=== PATIENT | male | born 1980 | race American Indian/Alaskan Native ===

== ENCOUNTER 2017-07-15 00:22 | Emergency (ER) | payer SELFPAY ==
[2017-07-15 00:38] VITALS: BP 164/79; PULSE 89; RESP 18; TEMP 98.2; O2SAT 100
--- NOTE | 2017-07-15 00:50 | C.PDOC ---
History Of Present Illness 37 year old male presents to the ER with a complaint of a right groin hernia for the past few months. Denies other complaints. Chief Complaint (Nursing): Groin Pain History Per: Patient History/Exam Limitations: no limitations Onset/Duration Of Symptoms: Days Current Symptoms Are (Timing): Still Present Quality Of Discomfort: Unable To Describe Alleviating Factors: None Recent travel outside of the [place]: No Past Medical History Reviewed: Historical Data, Nursing Documentation, Vital Signs Vital Signs: Last Vital Signs Temp 98.2 F 07/15/17 00:34 Pulse 89 07/15/17 00:34 Resp 18 07/15/17 00:34 BP 164/79 H 07/15/17 00:34 Pulse Ox 100 07/15/17 00:50 Family History: States: Unknown Family Hx - Social History Hx Alcohol Use: Yes Hx Substance Use: Yes (MARIJUANA SOMETIMES) - Immunization History Hx Tetanus Toxoid Vaccination: No Hx Influenza Vaccination: No Hx Pneumococcal Vaccination: No Review Of Systems Constitutional: Negative for: Fever, Chills Cardiovascular: Negative for: Chest Pain, Palpitations Respiratory: Negative for: Cough, Shortness of Breath Gastrointestinal: Positive for: Other (Hernia). Negative for: Nausea, Vomiting Physical Exam - Physical Exam Appears: Non-toxic Skin: Normal Color, Warm, Dry Head: Atraumatic, Normacephalic Eye(s): bilateral: Normal Inspection Oral Mucosa: Moist Chest: Symmetrical, No Tenderness Cardiovascular: Rhythm Regular Respiratory: Normal Breath Sounds, No Rales, No Rhonchi, No Wheezing Gastrointestinal/Abdominal: Soft, No Tenderness Male Genital: Other (Right reducible inguinal hernia) Neurological/Psych: Oriented x3, Normal Speech ED Course And Treatment O2 Sat by Pulse Oximetry: 100 (Room air) Pulse Ox Interpretation: Normal Disposition Counseled Patient/Family Regarding: Diagnosis - Disposition Referrals: [facility] [Outside] Disposition: HOME/ ROUTINE Disposition Time: 00:49 Condition: STABLE Instructions: Groin Hernia (DC) Forms: [facility] (Estonian) - POA Present On Arrival: None - Clinical Impression Clinical Impression: Reducible right inguinal hernia - Scribe Statement The provider has reviewed the documentation as recorded by the Scribe Stanislav Singh All medical record entries made by the Scribe were at my direction and personally dictated by me. I have reviewed the chart and agree that the record accurately reflects my personal performance of the history, physical exam, medical decision making, and the department course for this patient. I have also personally directed, reviewed, and agree with the discharge instructions and disposition.
== END 2017-07-15 01:04 | disposition home or self-care (01) ==
LOC: C.ER 00:22
DX: K40.90 Unilateral inguinal hernia, without obstruction or gangrene, not specified as recurrent (principal)

== ENCOUNTER 2017-12-15 14:14 | Inpatient (IN) | payer OTHER ==
--- NOTE | 2017-12-15 15:05 | C.PDOC ---
History Of Present Illness 37 year old male presents to the ED for evaluation of right groin pain for 2 months. Patient reports prior visit to the ED where he was treated and diagnosed with a hernia, and advised to follow up with the doctor. Patient has not f ollowed up with the doctor concerning his hernia. Denies fever, chills, nausea, vomiting, and any other associated symptoms. Time Seen by Provider: 12/15/17 14:21 Chief Complaint (Nursing): Groin Pain History Per: Patient History/Exam Limitations: no limitations Onset/Duration Of Symptoms: Days Current Symptoms Are (Timing): Still Present Past Medical History Reviewed: Historical Data, Nursing Documentation, Vital Signs Vital Signs: Last Vital Signs Temp 98.5 F 12/15/17 14:18 Pulse 105 H 12/15/17 14:18 Resp 17 12/15/17 14:18 BP 148/82 12/15/17 14:18 Pulse Ox 97 12/15/17 14:18 - Medical History PMH: Denies: Chronic Kidney Disease Family History: States: Unknown Family Hx - Social History Hx Alcohol Use: Yes Hx Substance Use: Yes - Immunization History Hx Tetanus Toxoid Vaccination: No Hx Influenza Vaccination: No Hx Pneumococcal Vaccination: No Review Of Systems Except As Marked, All Systems Reviewed And Found Negative. Constitutional: Negative for: Fever, Chills Gastrointestinal: Negative for: Nausea, Vomiting Genitourinary: Positive for: Other (right-sided groin pain. ) Physical Exam - Physical Exam Appears: Well, Non-toxic, No Acute Distress Skin: Normal Color, Warm, Dry Head: Atraumatic, Normacephalic Eye(s): bilateral: Normal Inspection Oral Mucosa: Moist Neck: Normal ROM, Supple Cardiovascular: Rhythm Regular, No Murmur Respiratory: Normal Breath Sounds, No Rales, No Rhonchi, No Wheezing Gastrointestinal/Abdominal: Soft, Tenderness (tenderness and swelling to the right groin area.) Male Genital: Testicular Tenderness (right.), Testicular Swelling (right.) Neurological/Psych: Oriented x3, Normal Speech ED Course And Treatment - Laboratory Results Result Diagrams: 12/15/17 15:40 Lab Interpretation: Normal O2 Sat by Pulse Oximetry: 97 (RA) Pulse Ox Interpretation: Normal Progress Note: Case discussed and patient evaluated by advanced manufacturing vice president who agrees to admit to Dr Rodriguez for hernia repair Reassessment Condition: Unchanged - Physician Consult Information Physician Contacted: Michael Rodriguez Outcome Of Conversation: admit Medical Decision Making Medical Decision Making: Plan: -Blood sent. Urinalysis 3:16pm: Spoke with the advanced manufacturing vice president who will see patient at bedside. Disposition Discussed With : Michael Rodriguez Doctor Will See Patient In The: Hospital - Disposition Disposition: HOSPITALIZED Disposition Time: 16:00 Condition: STABLE - POA Present On Arrival: None - Clinical Impression Clinical Impression: Incarcerated inguinal hernia - PA / STITCH BURNISHER / Resident Statement MD/DO has reviewed & agrees with the documentation as recorded. - Scribe Statement The provider has reviewed the documentation as recorded by the Scribe (Betty Figueroa) All medical record entries made by the Scribe were at my direction and personally dictated by me. I have reviewed the chart and agree that the record accurately reflects my personal performance of the history, physical exam, medical decision making, and the department course for this patient. I have also personally directed, reviewed, and agree with the discharge instructions and disposition. Decision To Admit - Pt Status Changed To: Hospital Disposition Of: Inpatient - Admit Certification Admit to Inpatient:: After my assessment, the patient will require hospitalization for at least two midnights. This is because of the severity of symptoms shown, intensity of services needed, and/or the medical risk in this patient being treated as an outpatient. - InPatient: Physician Admission Certification: I certify that this patient requires 2 or more midnights of care for the following reason:: Inguinal Hernia - . Bed Request Type: Regular Admitting Physician: Michael Rodriguez Patient Diagnosis: Incarcerated inguinal hernia
[2017-12-15 15:48] LABS: BASO % 0.9 % (0.0-2.0); EOS # 0.1 K/uL (0.0-0.7); EOS % 2.9 % (0.0-4.0); HEMOGLOBIN 15.7 g/dL (12.0-18.0); LYMPH # 1.3 K/uL (1.0-4.3); MEAN CELL VOLUME 89.2 fL (80.0-94.0); MEAN CORPUSCULAR HEMOGLOBIN 30.1 pg (27.0-31.0); MEAN CORPUSCULAR HGB CONC 33.7 g/dL (33.0-37.0); MEAN PLATELET VOLUME 9.5 fL (7.2-11.7); MONO # 0.4 K/uL (0.0-0.8); MONO % 9.2 % (0.0-10.0); NEUT # 2.9 K/uL (1.8-7.0); RBC 5.22 Mil/uL (4.40-5.90); RED CELL DISTRIBUTION WIDTH 13.6 % (11.5-14.5); WHITE BLOOD COUNT 4.9 K/uL (4.8-10.8)
--- NOTE | 2017-12-15 15:53 | CP.PCM.HP ---
History of Present Illness - History of Present Illness History of Present Illness: General Surgery H&P Physician: Dr. Rodriguez HPI: 37 year old male with no PMHx presents to the ED with right inguinal pain. Patient has previously been seen in the EDx2 for right inguinal hernia that required a physician to reduce. Patient was previously taught how to reduce his inguinal hernia. Patient presented today due to right inguinal pain and unable to reduce his inguinal hernia. Inguinal hernia is noted to be larger than pre viously stated. Patient states that he continues to have bowel movements. Patient denies nausea, vomiting, chest pain, or shortness of breath. PMHx: Denies PSH: Denies Allergies: Denies Social Hx: Patient denies tobacco use. Patient admits to smoking marijuana occasionally. Present on Admission - Present on Admission Any Indicators Present on Admission: No History of DVT/PE: No History of Uncontrolled Diabetes: No Review of Systems - Review of Systems All systems: reviewed and no additional remarkable complaints except (as per HPI) Past Patient History - Infectious Disease Hx of Infectious Diseases: None - Past Social History Smoking Status: HOOKAH - CARDIAC Hx Cardiac Disorders: No - PULMONARY Hx Respiratory Disorders: No - NEUROLOGICAL Hx Neurological Disorder: No - HEENT Hx HEENT Problems: No - RENAL Hx Chronic Kidney Disease: No - ENDOCRINE/METABOLIC Hx Endocrine Disorders: No - HEMATOLOGICAL/ONCOLOGICAL Hx Blood Disorders: No - INTEGUMENTARY Hx Dermatological Problems: No - MUSCULOSKELETAL/RHEUMATOLOGICAL Hx Musculoskeletal Disorders: No - GASTROINTESTINAL Hx Gastrointestinal Disorders: No - GENITOURINARY/GYNECOLOGICAL Hx Genitourinary Disorders: No - PSYCHIATRIC Hx Substance Use: Yes - SURGICAL HISTORY Hx Surgeries: No - ANESTHESIA Hx Anesthesia: No Meds Allergies/Adverse Reactions: Allergies Allergy/AdvReac Type Severity Reaction Status Date / Time No Known Allergies Allergy Verified 12/15/17 14:21 Physical Exam - Constitutional Appears: Non-toxic, No Acute Distress - Head Exam Head Exam: ATRAUMATIC, NORMAL INSPECTION - Eye Exam Eye Exam: EOMI, Normal appearance - ENT Exam ENT Exam: Mucous Membranes Moist, Normal Exam - Neck Exam Neck exam: Positive for: Normal Inspection Additional comments: Trachea midline - Respiratory Exam Respiratory Exam: Clear to Auscultation Bilateral, NORMAL BREATHING PATTERN. absent: Decreased Breath Sounds, Respiratory Distress - Cardiovascular Exam Cardiovascular Exam: REGULAR RHYTHM, +S1, +S2 - GI/Abdominal Exam GI & Abdominal Exam: Hernia, Soft. absent: Diminished Bowel Sounds, Distended, Rebound Additional comments: Right inguinal hernia appreciated. - Rectal Exam Rectal Exam: Deferred - Extremities Exam Extremities exam: Positive for: normal inspection. Negative for: calf tenderness, pedal edema - Back Exam Back exam: FULL ROM, NORMAL INSPECTION - Neurological Exam Neurological exam: Alert, Oriented x3 - Psychiatric Exam Psychiatric exam: Normal Affect, Normal Mood - Skin Skin Exam: Dry, Normal Color, Warm Results - Vital Signs Recent Vital Signs: Last Vital Signs Temp 98.5 F 12/15/17 14:18 Pulse 105 H 12/15/17 14:18 Resp 17 12/15/17 14:18 BP 148/82 12/15/17 14:18 Pulse Ox 97 12/15/17 15:18 - Labs Result Diagrams: 12/15/17 15:40 12/15/17 15:40 Assessment & Plan - Assessment and Plan (Free Text) Assessment: 37 y/o male with no PMHx presents to the ED with right inguinal hernia. - OR for Right Inguinal Hernia Repair - CT abdomen & pelvis with PO and IV contrast - f/u CBC/CMP/lactate - T&S, Coags - DVT ppx - Pain management PRN Will discuss with Dr. Michael Hansen, PGY-4
[2017-12-15 16:17] LABS: ALB/GLOB RATIO 1.3 (1.0-2.1); ALBUMIN 4.1 g/dL (3.5-5.0); ALT/SGPT 42 U/L (21-72); AST/SGOT 31 U/L (17-59); BLOOD UREA NITROGEN 15 mg/dL (9-20); CALCIUM 9.3 mg/dl (8.6-10.4); GFR NON-AFRICAN AMERICAN 53
[2017-12-15] MEDS ORDERED: Iodixanol 320 MG/ML 100 ML BOTTLE IV ONE ×2 (17:24→18:40)
[2017-12-15] MEDS ORDERED: Iohexol 240 (50 ml) PO ONE (17:53)
[2017-12-15 22:00] LABS: SQUAMOUS EPITHIAL < 1 /hpf (0-5); URINE BILIRUBIN NEGATIVE (NEGATIVE); URINE BLOOD NEGATIVE (NEGATIVE); URINE CLARITY Clear (Clear); URINE COLOR Yellow (YELLOW); URINE GLUCOSE (UA) NORMAL (Normal); URINE LEUKOCYTE ESTERASE NEG Leu/uL (Negative); URINE PROTEIN NEGATIVE (NEGATIVE); URINE UROBILINOGEN NORMAL mg/dL (0.2-1.0)
[2017-12-16] MEDS: Morphine 4 MG/ML VIAL IVP PRN ×4 (00:13→21:56)
[2017-12-16 07:50] LABS: BASO % 0.6 % (0.0-2.0); EOS # 0.3 K/uL (0.0-0.7); EOS % 4.5 % (0.0-4.0); HEMOGLOBIN 16.2 g/dL (12.0-18.0); LYMPH % 34.1 % (20.0-40.0); MEAN CELL VOLUME 88.9 fL (80.0-94.0); MEAN CORPUSCULAR HEMOGLOBIN 30.2 pg (27.0-31.0); MONO # 0.6 K/uL (0.0-0.8); MONO % 10.1 % (0.0-10.0); NEUT % 50.7 % (50.0-75.0); NRBC % 0.1 % (0.0-2.0); RBC 5.36 Mil/uL (4.40-5.90); RED CELL DISTRIBUTION WIDTH 13.4 % (11.5-14.5); WHITE BLOOD COUNT 5.9 K/uL (4.8-10.8)
--- NOTE | 2017-12-16 07:55 | CP.PCM.PN ---
Subjective - Date & Time of Evaluation Date of Evaluation: 12/16/17 Time of Evaluation: 07:50 - Subjective Subjective: Surgery PT seen and examined. Denies fever, nausea, vomiting. BM yesterday. No fevers. Unable to reduce hernia. Objective - Vital Signs/Intake and Output Vital Signs (last 24 hours): Temp Pulse Resp BP Pulse Ox 97.9 F 78 20 124/60 98 12/16/17 00:00 12/16/17 00:00 12/16/17 00:00 12/16/17 00:00 12/16/17 00:00 - Medications Medications: Current Medications Influenza Virus Vaccine (Fluzone Quad [id number]) 60 mcg IM .ONCE ONE Stop: 12/17/17 10:01 Morphine Sulfate (Morphine) 4 mg IVP Q4H PRN PRN Reason: Pain, moderate (4-7) Last Admin: 12/16/17 00:13 Dose: 4 mg Ondansetron HCl (Zofran Inj) 4 mg IVP Q6H PRN PRN Reason: Nausea/Vomiting Pneumococcal Polyvalent Vaccine (Pneumovax 23 Vaccine) 0.5 ml IM .ONCE ONE Stop: 12/17/17 10:01 - Labs Labs: 12/15/17 15:40 12/15/17 15:40 - Constitutional Appears: No Acute Distress - Head Exam Head Exam: ATRAUMATIC, NORMAL INSPECTION, NORMOCEPHALIC - Eye Exam Eye Exam: EOMI, Normal appearance, PERRL Pupil Exam: NORMAL ACCOMODATION, PERRL - ENT Exam ENT Exam: Mucous Membranes Moist, Normal Exam - Neck Exam Neck Exam: Full ROM - Respiratory Exam Respiratory Exam: NORMAL BREATHING PATTERN - Cardiovascular Exam Cardiovascular Exam: REGULAR RHYTHM - GI/Abdominal Exam GI & Abdominal Exam: Soft. absent: Distended, Rigid, Tenderness - Exam Exam: Scrotal Swelling Additional comments: R inguinal hernia. 2x2cm. scrotum [id number] - Extremities Exam Extremities Exam: Full ROM - Back Exam Back Exam: NORMAL INSPECTION - Neurological Exam Neurological Exam: Alert, Awake, CN II-XII Intact, Normal Gait, Oriented x3 - Psychiatric Exam Psychiatric exam: Normal Affect, Normal Mood - Skin Skin Exam: Dry, Intact, Normal Color, Warm Assessment and Plan - Assessment and Plan (Free Text) Assessment: 37 y/o male with no PMHx with right inguinal hernia. - OR for Right Inguinal Hernia Repair on Wed - CT abdomen & pelvis with PO and IV contrast shows fat containing hernia - f/u CBC/CMP/lactate - T&S, Coags - DVT ppx - Pain management PRN Will discuss with Dr. Rodriguez
[2017-12-16 07:59] LABS: INR 1.1; PROTHROMBIN TIME 11.8 SECONDS (9.7-12.2)
[2017-12-16 08:08] LABS: ALB/GLOB RATIO 1.4 (1.0-2.1); ALBUMIN 4.1 g/dL (3.5-5.0); ALT/SGPT 39 U/L (21-72); AST/SGOT 34 U/L (17-59); BLOOD UREA NITROGEN 17 mg/dL (9-20); CALCIUM 9.5 mg/dl (8.6-10.4); GFR NON-AFRICAN AMERICAN > 60
--- NOTE | 2017-12-16 11:37 | CT ---
PROCEDURE: CT Abdomen and Pelvis with oral and IV contrast. HISTORY: eval hernia contents RIH COMPARISON: None available. TECHNIQUE: Contiguous axial images of the abdomen and pelvis. Oral and IV contrast was administered. Coronal and Sagittal reformats generated and reviewed. Contrast dose: 100 cc visi opaque 320 IV Radiation dose: Total exam DLP = 1178.67 mGy-cm. This CT exam was performed using one or more of the following dose reduction techniques: Automated exposure control, adjustment of the mA and/or kV according to patient size, and/or use of iterative reconstruction technique. FINDINGS: LOWER THORAX: No visible consolidation, pleural effusion, or pneumothorax. Small hiatal hernia/distal esophageal wall thickening. LIVER: Unremarkable. GALLBLADDER AND BILE DUCTS: Unremarkable. PANCREAS: Unremarkable. SPLEEN: Unremarkable. ADRENALS: Unremarkable. KIDNEYS AND URETERS: The kidneys enhance symmetrically. No hydronephrosis or obstructing renal calculus. Too small to characterize left renal hypodensity; statistically likely cyst. BLADDER: The urinary bladder appears unremarkable. REPRODUCTIVE: Large fat containing right inguinal hernia extends into the scrotum. Right-sided hydrocele. APPENDIX: The appendix appears within normal limits of caliber. No secondary signs of acute appendicitis. BOWEL: The stomach is nondistended. The bowel loops appear within normal limits of caliber without evidence of intestinal obstruction. PERITONEUM: No significant free fluid. No definite free air. LYMPH NODES: No bulky lymphadenopathy identified. VASCULATURE: No aortic aneurysm. BONES: No acute osseous abnormality is detected. OTHER FINDINGS: None. IMPRESSION: Large right-sided fat containing inguinal hernia which extends into the scrotum. Right-sided hydrocele. Preliminary impression was provided by Doorman.
[2017-12-17 06:49] LABS: BASO % 0.5 % (0.0-2.0); EOS # 0.3 K/uL (0.0-0.7); EOS % 4.2 % (0.0-4.0); LYMPH # 2.3 K/uL (1.0-4.3); LYMPH % 36.9 % (20.0-40.0); MEAN CELL VOLUME 88.8 fL (80.0-94.0); MEAN CORPUSCULAR HEMOGLOBIN 29.9 pg (27.0-31.0); MEAN CORPUSCULAR HGB CONC 33.7 g/dL (33.0-37.0); MEAN PLATELET VOLUME 9.6 fL (7.2-11.7); MONO # 0.6 K/uL (0.0-0.8); MONO % 8.9 % (0.0-10.0); NEUT # 3.1 K/uL (1.8-7.0); NEUT % 49.5 % (50.0-75.0); NRBC % 0.1 % (0.0-2.0); RBC 5.33 Mil/uL (4.40-5.90); RED CELL DISTRIBUTION WIDTH 13.3 % (11.5-14.5); WHITE BLOOD COUNT 6.3 K/uL (4.8-10.8)
[2017-12-17 07:07] LABS: ALB/GLOB RATIO 1.3 (1.0-2.1); ALBUMIN 3.9 g/dL (3.5-5.0); ALT/SGPT 41 U/L (21-72); AST/SGOT 29 U/L (17-59); BLOOD UREA NITROGEN 17 mg/dL (9-20); CALCIUM 9.3 mg/dl (8.6-10.4); GFR NON-AFRICAN AMERICAN > 60
[2017-12-17] MEDS ORDERED: Bupivacaine-Epi 0.5%-1:200,000 PF Inj ONE (07:24)
[2017-12-17] MEDS ORDERED: Propofol 10 mg/ml Inj (20 ML) ONE (08:02)
[2017-12-17] MEDS ORDERED: Midazolam 2 MG/2 ML VIAL ONE (08:02)
[2017-12-17] MEDS: ceFAZolin IV 1 gm in Dextrose 2 GM/100 ML BAG IVPB ONE ×2 (08:08→08:15)
--- NOTE | 2017-12-17 09:27 | PCM.SURG1 ---
Surgeon's Initial Post Op Note - Surgeon's Notes Surgeon: Dr Rodriguez Warp Dyeing Vat Tender: Dr Hansen PGY4, Dr Meadows PGY3 Type of Anesthesia: General Endo Pre-Operative Diagnosis: right inguinal hernia Operative Findings: pantaloon hernia Post-Operative Diagnosis: as above Operation Performed: right inguinal hernia repair with mesh Specimen/Specimens Removed: hernia sac Estimated Blood Loss: EBL {In ML}: 30 Blood Products Given: N/A Drains Used: Rose Mary (right testicle) Post-Op Condition: Good Date of Surgery/Procedure: 12/17/17 Time of Surgery/Procedure: 09:27
[2017-12-17] MEDS: HYDROmorphone 0.5 mg/0.5 ml ISec IVP PRN ×6 (09:30→20:54)
[2017-12-17] MEDS ORDERED: HYDROmorphone 0.5 mg/0.5 ml ISec ONE (09:31)
[2017-12-17] MEDS ORDERED: Influenza Vaccine 22.5 mcg/0.25 ml Syr (6 - 35 months) IM ONE (10:00)
[2017-12-17] MEDS ORDERED: Pneumococcal 23-Valent Vaccine IM ONE ×2 (10:00→11:20)
[2017-12-17] MEDS ORDERED: Influenza Vaccine 60 MCG/0.5 ML SYR (3 yr & up) IM ONE ×2 (10:00→11:20)
[2017-12-17] MEDS: Oxycodone/Acetaminophen 5/325 mg Tab PO PRN ×2 (11:29→17:27)
--- NOTE | 2017-12-17 15:04 | PCM.FALL ---
Post Fall Progress Note - Post Fall Fall Date: 12/17/17 Fall Time: 14:55 Description of Fall: Fabrice Linares at 1455 called after patient told staff that he tried to get out of bed and landed on his right knee. He states that he just had hernia surgery and was still numb from anesthesia. He states he was able to brace his fall on the bed using his hands. He denies hitting his head, denies loss of consciousness. - Post Fall Exam Vital Sign: Temp Pulse Resp BP Pulse Ox 97 F L 65 10 L 133/76 95 12/17/17 10:30 12/17/17 10:30 12/17/17 10:30 12/17/17 10:30 12/17/17 10:30 Skull Exam: Negative for: Scalp wound, Scalp hematoma, Scalp depression Eye Exam: Positive for: Pupils equal, Pupils reactive Ear Exam: Negative for: Discharge, Bleeding Nose Exam: Negative for: Discharge, Bleeding Skin Exam: Negative for: Colour, Lacerations, Grazes, Bruising Mouth Exam: Negative for: Tongue bitten, Teeth dislodge Neck Exam: Negative for: Tenderness, Tingling, Weakness Spinal Exam: Negative for: Tenderness, Tingling, Weakness Chest Exam: Negative for: Difficulty breathing, Tenderness in collar bones, Tenderness in ribs Abdomen Exam: Negative for: Tenderness Pelvic Exam: Negative for: Tenderness, Hematuria Arm Exam: Negative for: Deformity, Alteration in range of movement Leg Exam: Negative for: Deformity, Alteration in range of movement Other pertinent findings: Right knee: no skin changes, no lacerations, no tenderness to palpation right knee. no bony tenderness, no swelling. Impression/Plan: Fabrice Linares called after patient tried to test his strength after hernia surgery today Patient told nurse that he landed on his right knee while getting out of bed but was able to brace his fall. On exam, patient is nontender, no swelling, no breaks in skin Xrays not indicated at this time Nurse made aware that if patient develops swelling, hematoma, pain, will suggest X ray of right knee. Guido Thomas, PGY1
[2017-12-17 16:21] VITALS: RESP 20
--- NOTE | 2017-12-17 20:32 | OP ---
PROCEDURE DATE: 12/17/2017 SURGERY: Right inguinal hernia repair. INDICATION: Incarcerated right inguinal hernia. FISHER TRAWL NET: Leoncio Hansen DO SECOND FISHER TRAWL NET: Chloe Meadows DO INDICATIONS: This is a 37-year-old male who developed a symptomatic right inguinal hernia. He had had multiple ED admissions, in which the hernia was reduced, but in this particular admission it was unreducible, so the patient was taken for right inguinal hernia repair. DESCRIPTION OF PROCEDURE: The patient was brought to the room, placed on the table in the supine position. General anesthesia was induced and the right groin was prepped and draped in the usual sterile fashion. Time-out was performed correctly identifying the correct patient, correct surgery, as well as correct laterality of the procedure, which has been marked preoperatively. At this point, an incision was marked in the natural skin crease and plan to admit the pubic tubercle. Skin crease incision was then made using a #15 knife and deepened to Josefina's and Camper's fascia with electrocautery into the aponeurosis, where the external oblique was encountered. This was cleaned and the external ring was exposed. Hemostasis was achieved in the wound. The incision was then made in the mid portion of the external oblique aponeurosis under the direction of its fibers. The ilioinguinal nerve was identified and protected throughout the dissection. Flaps of the external oblique were developed cephalad and inferiorly. At this point, the cord was identified. It was then gently dissected free off the pubic tubercle and encircled with the Rose Mary drain. Attention was then directed to the anteromedial aspect of the cord, where an indirect hernia sac was identified. We carefully dissected the sac free off the cord down to the level of the internal ring. The vas and testicular vessels were identified and additionally protected from harm. At this point, we opened the sac and found that its contents consisted primarily of omentum, which were reduced into the peritoneal cavity. Finger was then passed into the peritoneal cavity and the floor of the inguinal canal was assessed and found to be strong. The femoral canal was palpated as well and there was no additional hernia identified. The sac was then twisted and suture ligated using 0 Vicryl. Redundant sac was excised and submitted to Pathology and then the stump of the sac was checked for hemostasis and allowed to retract into the abdomen. At this point, attention was then turned to the floor of the canal, which appeared to be grossly weakened without a well-defined defect of the sac. An extra large polypropylene plug was placed into the defect medial to the internal ring and was sutured to the conjoint tendon. At this point, the polypropylene mesh was fitted and found to be the appropriate size with an over medial portion and longitudinal lateral opening that came precut with the mesh prosthesis. At the beginning of the pubic tubercle, the mesh was sutured to the ligament inferiorly and then the conjoint tendon superiorly using interrupted 2-0 nonabsorbable Prolene. Care was taken to assure that the mesh was placed in a relaxed fashion to avoid excessive tension and then no neurovascular structures were caught and repaired. Laterally, the tails of the mesh were crossed and internal ring recreated allowing for the passage of my fifth fingertip as well as the cord. Hemostasis was again checked. The [place] drain was removed. Testicle was replaced into the scrotum sac. The external oblique aponeurosis was closed using running 2-0 Vicryl taking care not to touch the ilioinguinal nerve in the suture line. The skin was closed using 4-0 monofilament in a subcuticular continuous stitch. There was a small 0.5 cm incision made in the inferior pole of the right scrotum for passage of a Rose Mary drain, so that the seroma that was encountered during the surgery would be allowed to continue to drain. Sterile dressing was then applied. After the dressing was applied and the drapes were taken down, the testes were gently pulled down into their appropriate anatomic position in the scrotum. The patient tolerated the procedure well and was taken to the postanesthesia care unit in stable condition. Leoncio Hansen DO Michael Rodriguez MD
[2017-12-18] MEDS: Oxycodone/Acetaminophen 5/325 mg Tab PO PRN ×4 (00:45→22:01)
[2017-12-18] MEDS: HYDROmorphone 0.5 mg/0.5 ml ISec IVP PRN ×2 (03:10→09:30)
--- NOTE | 2017-12-18 07:40 | CP.PCM.DIS ---
Provider - Provider Date of Admission: 12/15/17 15:37 Attending physician: Michael Rodriguez MD Hospital Course - Lab Results Lab Results: Most Recent Lab Values WBC 6.3 K/uL (4.8-10.8) 12/17/17 06:40 RBC 5.33 Mil/uL (4.40-5.90) 12/17/17 06:40 Hgb 16.0 g/dL (12.0-18.0) 12/17/17 06:40 Hct 47.3 % (35.0-51.0) 12/17/17 06:40 MCV 88.8 fL (80.0-94.0) 12/17/17 06:40 MCH 29.9 pg (27.0-31.0) 12/17/17 06:40 MCHC 33.7 g/dL (33.0-37.0) 12/17/17 06:40 RDW 13.3 % (11.5-14.5) 12/17/17 06:40 Plt Count 155 K/uL (130-400) 12/17/17 06:40 MPV 9.6 fL (7.2-11.7) 12/17/17 06:40 Neut % (Auto) 49.5 % (50.0-75.0) L 12/17/17 06:40 Lymph % (Auto) 36.9 % (20.0-40.0) 12/17/17 06:40 [place] % (Auto) 8.9 % (0.0-10.0) 12/17/17 06:40 Eos % (Auto) 4.2 % (0.0-4.0) H 12/17/17 06:40 Baso % (Auto) 0.5 % (0.0-2.0) 12/17/17 06:40 Neut # (Auto) 3.1 K/uL (1.8-7.0) 12/17/17 06:40 Lymph # (Auto) 2.3 K/uL (1.0-4.3) 12/17/17 06:40 [place] # (Auto) 0.6 K/uL (0.0-0.8) 12/17/17 06:40 Eos # (Auto) 0.3 K/uL (0.0-0.7) 12/17/17 06:40 Baso # (Auto) 0.0 K/uL (0.0-0.2) 12/17/17 06:40 PT 11.8 SECONDS (9.7-12.2) 12/16/17 07:40 INR 1.1 12/16/17 07:40 APTT 37 SECONDS (21-34) H 12/16/17 07:40 Sodium 140 mmol/L (132-148) 12/17/17 06:40 Potassium 4.3 mmol/L (3.6-5.2) 12/17/17 06:40 Chloride 103 mmol/L (98-107) 12/17/17 06:40 Carbon Dioxide 27 mmol/L (22-30) 12/17/17 06:40 Anion Gap 14 (10-20) 12/17/17 06:40 BUN 17 mg/dL (9-20) 12/17/17 06:40 Creatinine 1.3 mg/dL (0.8-1.5) 12/17/17 06:40 Est GFR ( Amer) > 60 12/17/17 06:40 Est GFR (Non-Af Amer) > 60 12/17/17 06:40 Random Glucose 97 mg/dL (75-110) 12/17/17 06:40 Lactic Acid 0.9 mmol/L (0.7-2.1) 12/15/17 16:48 Calcium 9.3 mg/dl (8.6-10.4) 12/17/17 06:40 Total Bilirubin 0.5 mg/dL (0.2-1.3) 12/17/17 06:40 AST 29 U/L (17-59) 12/17/17 06:40 ALT 41 U/L (21-72) 12/17/17 06:40 Alkaline Phosphatase 69 U/L (38-126) 12/17/17 06:40 Total Protein 7.0 g/dL (6.3-8.3) 12/17/17 06:40 Albumin 3.9 g/dL (3.5-5.0) 12/17/17 06:40 Globulin 3.0 gm/dL (2.2-3.9) 12/17/17 06:40 Albumin/Globulin Ratio 1.3 (1.0-2.1) 12/17/17 06:40 Urine Color Yellow (YELLOW) 12/15/17 21:41 Urine Clarity Clear (Clear) 12/15/17 21:41 Urine pH 6.0 (5.0-8.0) 12/15/17 21:41 Ur Specific [place] 1.026 (1.003-1.030) 12/15/17 21:41 Urine Protein Negative mg/dL (NEGATIVE) 12/15/17 21:41 Urine Glucose (UA) Normal mg/dL (Normal) 12/15/17 21:41 Urine Ketones Negative mg/dL (NEGATIVE) 12/15/17 21:41 Urine Blood Negative (NEGATIVE) 12/15/17 21:41 Urine Nitrate Negative (NEGATIVE) 12/15/17 21:41 Urine Bilirubin Negative (NEGATIVE) 12/15/17 21:41 Urine Urobilinogen Normal mg/dL (0.2-1.0) 12/15/17 21:41 Ur Leukocyte Esterase Neg [place]/uL (Negative) 12/15/17 21:41 Urine WBC (Auto) 3 /hpf (0-5) 12/15/17 21:41 Urine RBC (Auto) < 1 /hpf (0-3) 12/15/17 21:41 Ur Squamous Epith Cells < 1 /hpf (0-5) 12/15/17 21:41 Blood Type O POSITIVE 12/16/17 07:40 Antibody Screen Negative 12/16/17 07:40 Discharge Exam - Head Exam Head Exam: ATRAUMATIC, NORMAL INSPECTION, NORMOCEPHALIC Discharge Plan - Follow Up Plan Condition: STABLE Disposition: HOME/ ROUTINE
[2017-12-18 08:46] LABS: BASO % 0.3 % (0.0-2.0); EOS % 0.3 % (0.0-4.0); HEMOGLOBIN 15.3 g/dL (12.0-18.0); LYMPH # 1.5 K/uL (1.0-4.3); LYMPH % 13.1 % (20.0-40.0); MEAN CORPUSCULAR HGB CONC 33.7 g/dL (33.0-37.0); MEAN PLATELET VOLUME 10.1 fL (7.2-11.7); MONO # 1.1 K/uL (0.0-0.8); MONO % 9.6 % (0.0-10.0); NEUT # 8.9 K/uL (1.8-7.0); NEUT % 76.7 % (50.0-75.0); NRBC % 0.1 % (0.0-2.0); RBC 5.09 Mil/uL (4.40-5.90); RED CELL DISTRIBUTION WIDTH 13.5 % (11.5-14.5); WHITE BLOOD COUNT 11.6 K/uL (4.8-10.8)
[2017-12-18 08:59] LABS: ALB/GLOB RATIO 1.2 (1.0-2.1); ALT/SGPT 35 U/L (21-72); AST/SGOT 32 U/L (17-59); BLOOD UREA NITROGEN 17 mg/dL (9-20); CALCIUM 9.3 mg/dl (8.6-10.4); GFR NON-AFRICAN AMERICAN > 60
--- NOTE | 2017-12-18 16:09 | CP.PCM.PN ---
Subjective - Date & Time of Evaluation Date of Evaluation: 12/18/17 Time of Evaluation: 04:00 - Subjective Subjective: General Surgery Note For Dr. Rodriguez Patient seen and examined at bedside. Patient is s/p right inguinal hernia repair with mesh POD#1. Patient is complaining of right groin pain. He is also complaining of numbness of right thigh. Patient states that he fell last night when trying to walk. He landed on his right knee. Denies head trauma or LOC. He reports symptoms are better today and able to ambulate slightly better. Patient tolerating diet and passing flatus. Denies fever/chills or nausea/vomiting. Objective - Vital Signs/Intake and Output Vital Signs (last 24 hours): Temp Pulse Resp BP Pulse Ox 98.9 F 72 20 135/86 96 12/18/17 07:41 12/18/17 07:41 12/18/17 07:41 12/18/17 07:41 12/18/17 07:41 Intake and Output: 12/18/17 12/18/17 06:59 18:59 Intake Total 1000 Output Total 500 Balance 500 - Medications Medications: Current Medications Hydromorphone HCl (Dilaudid) 0.5 mg IVP Q6H PRN PRN Reason: Pain, severe (8-10) Last Admin: 12/18/17 09:30 Dose: 0.5 mg Ketorolac Tromethamine (Toradol) 30 mg IVP Q6H EDWARD Stop: 12/19/17 19:46 Last Admin: 12/18/17 13:38 Dose: 30 mg Ondansetron HCl (Zofran Inj) 4 mg IVP Q6H PRN PRN Reason: Nausea/Vomiting Oxycodone/Acetaminophen (Percocet 5/325 Mg Tab) 1 tab PO Q4H PRN PRN Reason: Pain, moderate (4-7) Stop: 12/20/17 09:28 Last Admin: 12/18/17 12:09 Dose: 1 tab - Labs Labs: 12/18/17 08:26 12/18/17 08:26 PT 11.8 SECONDS (9.7-12.2) 12/16/17 07:40 INR 1.1 12/16/17 07:40 APTT 37 SECONDS (21-34) H 12/16/17 07:40 - Constitutional Appears: No Acute Distress - Head Exam Head Exam: ATRAUMATIC, NORMOCEPHALIC - Eye Exam Eye Exam: EOMI, Normal appearance Pupil Exam: PERRL - ENT Exam ENT Exam: Mucous Membranes Moist - Respiratory Exam Respiratory Exam: NORMAL BREATHING PATTERN - Cardiovascular Exam Cardiovascular Exam: REGULAR RHYTHM - GI/Abdominal Exam GI & Abdominal Exam: Soft, Tenderness (right groin at incision site), Normal Bowel Sounds. absent: Distended, Firm, Guarding, Rigid, Rebound - Extremities Exam Extremities Exam: Normal Capillary Refill. absent: Calf Tenderness Additional comments: paresthesia of right thigh right groin dressing clean dry and intact - Back Exam Back Exam: absent: CVA tenderness (L), CVA tenderness (R) - Neurological Exam Neurological Exam: Alert, Awake, Oriented x3 - Psychiatric Exam Psychiatric exam: Normal Affect, Normal Mood - Skin Skin Exam: Dry, Normal Color, Warm Assessment and Plan - Assessment and Plan (Free Text) Assessment: 37 s/p right inguinal hernia repair with mesh Plan: -Reg diet -Pain control -Encourage ambulation/IS/OOB to chair -Wear scrotal support -Further recommendations as per Dr. Michael Ayon PGY2
[2017-12-19 00:45] VITALS: PULSE 73
[2017-12-19 06:30] VITALS: TEMP 99.2
--- NOTE | 2017-12-19 07:17 | CP.PCM.DIS ---
Provider - Provider Date of Admission: 12/15/17 15:37 Attending physician: Michael Rodriguez MD Time Spent in preparation of Discharge (in minutes): 10 Hospital Course - Lab Results Lab Results: Most Recent Lab Values WBC 11.6 K/uL (4.8-10.8) H D 12/18/17 08:26 RBC 5.09 Mil/uL (4.40-5.90) 12/18/17 08:26 Hgb 15.3 g/dL (12.0-18.0) 12/18/17 08:26 Hct 45.3 % (35.0-51.0) 12/18/17 08: MCV 89.0 fL (80.0-94.0) 12/18/17 08: MCH 30.0 pg (27.0-31.0) 12/18/17 08: MCHC 33.7 g/dL (33.0-37.0) 12/18/17 08:26 RDW 13.5 % (11.5-14.5) 12/18/17 08:26 Plt Count 147 K/uL (130-400) 12/18/17 08:26 MPV 10.1 fL (7.2-11.7) 12/18/17 08:26 Neut % (Auto) 76.7 % (50.0-75.0) H 12/18/17 08:26 Lymph % (Auto) 13.1 % (20.0-40.0) L 12/18/17 08: [place] % (Auto) 9.6 % (0.0-10.0) 12/18/17 08:26 Eos % (Auto) 0.3 % (0.0-4.0) 12/18/17 08:26 Baso % (Auto) 0.3 % (0.0-2.0) 12/18/17 08:26 Neut # (Auto) 8.9 K/uL (1.8-7.0) H 12/18/17 08:26 Lymph # (Auto) 1.5 K/uL (1.0-4.3) 12/18/17 08:26 [place] # (Auto) 1.1 K/uL (0.0-0.8) H 12/18/17 08:26 Eos # (Auto) 0.0 K/uL (0.0-0.7) 12/18/17 08:26 Baso # (Auto) 0.0 K/uL (0.0-0.2) 12/18/17 08:26 PT 11.8 SECONDS (9.7-12.2) 12/16/17 07:40 INR 1.1 12/16/17 07:40 APTT 37 SECONDS (21-34) H 12/16/17 07:40 Sodium 138 mmol/L (132-148) 12/18/17 08:26 Potassium 3.7 mmol/L (3.6-5.2) 12/18/17 08:26 Chloride 100 mmol/L (98-107) 12/18/17 08:26 Carbon Dioxide 27 mmol/L (22-30) 12/18/17 08:26 Anion Gap 16 (10-20) 12/18/17 08:26 BUN 17 mg/dL (9-20) 12/18/17 08:26 Creatinine 1.0 mg/dL (0.8-1.5) 12/18/17 08:26 Est GFR ( Amer) > 60 12/18/17 08:26 Est GFR (Non-Af Amer) > 60 12/18/17 08:26 Random Glucose 125 mg/dL (75-110) H 12/18/17 08:26 Lactic Acid 0.9 mmol/L (0.7-2.1) 12/15/17 16:48 Calcium 9.3 mg/dl (8.6-10.4) 12/18/17 08:26 Total Bilirubin 0.5 mg/dL (0.2-1.3) 12/18/17 08:26 AST 32 U/L (17-59) 12/18/17 08:26 ALT 35 U/L (21-72) 12/18/17 08:26 Alkaline Phosphatase 70 U/L (38-126) 12/18/17 08:26 Total Protein 7.1 g/dL (6.3-8.3) 12/18/17 08:26 Albumin 4.0 g/dL (3.5-5.0) 12/18/17 08:26 Globulin 3.2 gm/dL (2.2-3.9) 12/18/17 08:26 Albumin/Globulin Ratio 1.2 (1.0-2.1) 12/18/17 08:26 Urine Color Yellow (YELLOW) 12/15/17 21:41 Urine Clarity Clear (Clear) 12/15/17 21:41 Urine pH 6.0 (5.0-8.0) 12/15/17 21:41 Ur Specific [place] 1.026 (1.003-1.030) 12/15/17 21:41 Urine Protein Negative mg/dL (NEGATIVE) 12/15/17 21:41 Urine Glucose (UA) Normal mg/dL (Normal) 12/15/17 21:41 Urine Ketones Negative mg/dL (NEGATIVE) 12/15/17 21:41 Urine Blood Negative (NEGATIVE) 12/15/17 21:41 Urine Nitrate Negative (NEGATIVE) 12/15/17 21:41 Urine Bilirubin Negative (NEGATIVE) 12/15/17 21:41 Urine Urobilinogen Normal mg/dL (0.2-1.0) 12/15/17 21:41 Ur Leukocyte Esterase Neg [place]/uL (Negative) 12/15/17 21:41 Urine WBC (Auto) 3 /hpf (0-5) 12/15/17 21:41 Urine RBC (Auto) < 1 /hpf (0-3) 12/15/17 21:41 Ur Squamous Epith Cells < 1 /hpf (0-5) 12/15/17 21:41 Blood Type O POSITIVE 12/16/17 07:40 Antibody Screen Negative 12/16/17 07:40 - Hospital Course Hospital Course: 37M admitted with incarcerated inguinal hernia. Taken to OR for repair. Tolerated well. D/C POD#2 tolerating diet, having BMs, pain controlled on oral meds. F/U in office on wednesday for drain removal Discharge Exam - Head Exam Head Exam: ATRAUMATIC, NORMOCEPHALIC - Eye Exam Eye Exam: Normal appearance - Respiratory Exam Respiratory Exam: NORMAL BREATHING PATTERN - Cardiovascular Exam Cardiovascular Exam: REGULAR RHYTHM - GI/Abdominal Exam GI & Abdominal Exam: Soft, Tenderness (post-op) Additional comments: dresing c/d/i Discharge Plan - Discharge Medications Prescriptions: Ibuprofen [Motrin Tab] 800 mg PO Q8H #20 tab - Follow Up Plan Condition: STABLE Disposition: HOME/ ROUTINE Instructions: Smoking: Not Just Harmful to Your Lungs and Heart, Hernia Repair (DC), Ibuprofen, Oxycodone and Acetaminophen, Pneumococcal Polysaccharide Vaccine (23-Valent), Flu Vaccine, Polysubstance Abuse (DC), Open Herniorrhaphy (DC), Laparoscopic Herniorrhaphy (DC), Inguinal Hernia (DC) Additional Instructions: Follow up with MD in office in 1 week No heavy lifting 4 to 6 weeks after discharge. OK to shower. Pt clear to return to work in 1 week. Continue to avoid heavy lifting, nothing greater than 20 lbs, for next 6 weeks. Referrals: Michael Rodriguez MD [Staff Provider] -
--- NOTE | 2017-12-19 07:21 | CP.PCM.DIS ---
Provider - Provider Date of Admission: 12/15/17 15:37 Attending physician: Michael Rodriguez MD Hospital Course - Lab Results Lab Results: Most Recent Lab Values WBC 11.6 K/uL (4.8-10.8) H D 12/18/17 08:26 RBC 5.09 Mil/uL (4.40-5.90) 12/18/17 08:26 Hgb 15.3 g/dL (12.0-18.0) 12/18/17 08:26 Hct 45.3 % (35.0-51.0) 12/18/17 08: MCV 89.0 fL (80.0-94.0) 12/18/17 08: MCH 30.0 pg (27.0-31.0) 12/18/17 08: MCHC 33.7 g/dL (33.0-37.0) 12/18/17 08: RDW 13.5 % (11.5-14.5) 12/18/17 08:26 Plt Count 147 K/uL (130-400) 12/18/17 08:26 MPV 10.1 fL (7.2-11.7) 12/18/17 08:26 Neut % (Auto) 76.7 % (50.0-75.0) H 12/18/17 08:26 Lymph % (Auto) 13.1 % (20.0-40.0) L 12/18/17 08:26 [place] % (Auto) 9.6 % (0.0-10.0) 12/18/17 08: Eos % (Auto) 0.3 % (0.0-4.0) 12/18/17 08:26 Baso % (Auto) 0.3 % (0.0-2.0) 12/18/17 08:26 Neut # (Auto) 8.9 K/uL (1.8-7.0) H 12/18/17 08:26 Lymph # (Auto) 1.5 K/uL (1.0-4.3) 12/18/17 08:26 [place] # (Auto) 1.1 K/uL (0.0-0.8) H 12/18/17 08:26 Eos # (Auto) 0.0 K/uL (0.0-0.7) 12/18/17 08:26 Baso # (Auto) 0.0 K/uL (0.0-0.2) 12/18/17 08:26 PT 11.8 SECONDS (9.7-12.2) 12/16/17 07:40 INR 1.1 12/16/17 07:40 APTT 37 SECONDS (21-34) H 12/16/17 07:40 Sodium 138 mmol/L (132-148) 12/18/17 08:26 Potassium 3.7 mmol/L (3.6-5.2) 12/18/17 08:26 Chloride 100 mmol/L (98-107) 12/18/17 08:26 Carbon Dioxide 27 mmol/L (22-30) 12/18/17 08:26 Anion Gap 16 (10-20) 12/18/17 08:26 BUN 17 mg/dL (9-20) 12/18/17 08:26 Creatinine 1.0 mg/dL (0.8-1.5) 12/18/17 08:26 Est GFR ( Amer) > 60 12/18/17 08:26 Est GFR (Non-Af Amer) > 60 12/18/17 08:26 Random Glucose 125 mg/dL (75-110) H 12/18/17 08:26 Lactic Acid 0.9 mmol/L (0.7-2.1) 12/15/17 16:48 Calcium 9.3 mg/dl (8.6-10.4) 12/18/17 08:26 Total Bilirubin 0.5 mg/dL (0.2-1.3) 12/18/17 08:26 AST 32 U/L (17-59) 12/18/17 08:26 ALT 35 U/L (21-72) 12/18/17 08:26 Alkaline Phosphatase 70 U/L (38-126) 12/18/17 08:26 Total Protein 7.1 g/dL (6.3-8.3) 12/18/17 08:26 Albumin 4.0 g/dL (3.5-5.0) 12/18/17 08:26 Globulin 3.2 gm/dL (2.2-3.9) 12/18/17 08:26 Albumin/Globulin Ratio 1.2 (1.0-2.1) 12/18/17 08:26 Urine Color Yellow (YELLOW) 12/15/17 21:41 Urine Clarity Clear (Clear) 12/15/17 21:41 Urine pH 6.0 (5.0-8.0) 12/15/17 21:41 Ur Specific [place] 1.026 (1.003-1.030) 12/15/17 21:41 Urine Protein Negative mg/dL (NEGATIVE) 12/15/17 21:41 Urine Glucose (UA) Normal mg/dL (Normal) 12/15/17 21:41 Urine Ketones Negative mg/dL (NEGATIVE) 12/15/17 21:41 Urine Blood Negative (NEGATIVE) 12/15/17 21:41 Urine Nitrate Negative (NEGATIVE) 12/15/17 21:41 Urine Bilirubin Negative (NEGATIVE) 12/15/17 21:41 Urine Urobilinogen Normal mg/dL (0.2-1.0) 12/15/17 21:41 Ur Leukocyte Esterase Neg [place]/uL (Negative) 12/15/17 21:41 Urine WBC (Auto) 3 /hpf (0-5) 12/15/17 21:41 Urine RBC (Auto) < 1 /hpf (0-3) 12/15/17 21:41 Ur Squamous Epith Cells < 1 /hpf (0-5) 12/15/17 21:41 Blood Type O POSITIVE 12/16/17 07:40 Antibody Screen Negative 12/16/17 07:40 Discharge Exam - Head Exam Head Exam: ATRAUMATIC, NORMOCEPHALIC Discharge Plan - Discharge Medications Prescriptions: Ibuprofen [Motrin Tab] 800 mg PO Q6H PRN #20 tab PRN Reason: Pain, Mild (1-3) oxyCODONE/Acetaminophen [Percocet 5/325 mg Tab] 1 tab PO Q4H PRN #20 tab PRN Reason: Pain, Moderate (4-7) - Follow Up Plan Condition: STABLE Disposition: HOME/ ROUTINE Instructions: Hernia Repair (DC)
[2017-12-19 07:55] VITALS: BP 118/61; O2SAT 98
== END 2017-12-19 12:40 | disposition home or self-care (01) | DRG 228 ==
LOC: C.ER 14:14 → C.9E 15:37 → C.3T 16:48
PROVIDERS: ADMIT Surgery; ATTEND Surgery
PROC: 0YU50JZ Supplement Right Inguinal Region with Synthetic Substitute, Open Approach (ICD-10-PCS; principal; 2017-12-17 07:45)
DX: K40.30 Unilateral inguinal hernia, with obstruction, without gangrene, not specified as recurrent (principal); F12.90 Cannabis use, unspecified, uncomplicated